=== PATIENT | female | born 1985 | race Caucasian/White ===

== ENCOUNTER 2018-07-17 21:01 | Emergency (ER) | payer MEDICAID ==
[~2018-07-17] VITALS: Ht 160 cm; Wt 86.2 kg
[2018-07-17 21:25] VITALS: BP 107/65
[2018-07-17] MEDS ORDERED: Lidocaine 1% Plain 30 ml INJ ONE (21:30)
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
[2018-07-17] MEDS ORDERED: IBUPROFEN600 MG ORAL (21:56)
[2018-07-17] MEDS ORDERED: CEPHALEXIN500 MG ORAL (21:56)
[2018-07-17 22:03] VITALS: BP 110/68
== END 2018-07-17 22:02 | disposition home or self-care (01) ==
LOC: EMR 21:49
DX: S61.216A Laceration without foreign body of right little finger without damage to nail, initial encounter (principal); V11.4XXA Pedal cycle driver injured in collision with other pedal cycle in traffic accident, initial encounter; Y93.55 Activity, bike riding; Y92.89 Other specified places as the place of occurrence of the external cause
CPT/HCPCS: 12001; 99283; J2001; Z7502

== ENCOUNTER 2019-08-01 15:33 | Emergency (ER) | payer MEDICAID ==
[~2019-08-01] VITALS: Ht 160 cm; Wt 68.5 kg
[~2019-08-01 15:33] MED LIST: CEPHALEXIN500 MG ORAL; IBUPROFEN600 MG ORAL
[2019-08-01] MEDS ORDERED: Tetanus/Diptheria/Pertussis IM ONE (15:45)
--- NOTE | 2019-08-01 15:48 | NUR ---
ED Nurse Note: Pt walked in ED d/t laceration on foreahead from concrete post 2 hours ago. Denies SOB, VSS.
[2019-08-01 15:57] VITALS: BP 117/90
--- NOTE | 2019-08-01 16:13 | NUR ---
ED Nurse Note: ERMD at bedside
--- NOTE | 2019-08-01 17:06 | Emergency Room Report ---
History of Present Illness General Chief Complaint: Head Injury Source: Patient Present Illness HPI 34 YO female presents to the ED c/o 02/27 in severity tenderness, open wound and bleeding to the right side of the forehead x 2 hours. Pt. s/p mechanical fall and hit her head on a cement pillar. She denies fall greater than 8ft. Denies neck or back pain, Denies LOC, paresthesias, urinary incontinence or retention. Denies N/V. She reports having some dizziness when she gets up too quickly. Denies vertigo. Pt. reports she is ambulating fine without assistance. PT. states she is not UTD with tetanus vaccinations . Pt. denies weakness or loss of gross motor movements. She denies bleeding at this time. She denies difficulty with memory, speech or construction of sentences. She denies taking blood thinning medications. She denies suspicion for fractures she reports pain is primarily on the skin/cut. Allergies: Coded Allergies: No Known Allergies (Unverified , 07/17/18) Patient History Past Medical History: see triage record Past Surgical History: none Pertinent Family History: none Now: No Reviewed Nursing Documentation: PMH: Agreed; PSxH: Agreed Nursing Documentation-PMH Hx Gastrointestinal Problems: Yes - gall bladder removed Review of Systems All Other Systems: negative except mentioned in HPI Physical Exam Vital Signs Date Time Temp Pulse Resp B/P (MAP) Pulse Ox O2 Delivery O2 Flow Rate FiO2 08/01/19 15:38 97.5 98 16 117/90 (99) 99 Room Air Sp02 EP Interpretation: reviewed, normal General Appearance: no apparent distress, alert, GCS 15, non-toxic Head: normocephalic, other - 2.5 cm laceration through all layers of the dermis on the right side of the forehead. No bleeding at this time. wound is not grossly contaminated. Eyes: bilateral eye normal inspection, bilateral eye PERRL, bilateral eye EOMI ENT: hearing grossly normal, normal voice Neck: full range of motion, no bony tend Respiratory: lungs clear, normal breath sounds, speaking full sentences Cardiovascular #1: regular rate, rhythm Musculoskeletal: back normal, gait/station normal, normal range of motion, non- tender Neurologic: alert, oriented x3, responsive, motor strength/tone normal, sensory intact, normal gait, speech normal, other - Pt. is answering questions appropriately providing sufficient amount of details without increased response time or difficulty with word recall or sentence construction., grossly normal Psychiatric: judgement/insight normal Skin: laceration - 2.5 cm laceration through all layers of the dermis on the right side of the forehead. No bleeding at this time. wound is not grossly contaminated. Procedures Laceration/Wound Repair Laceration/Wound Repair : Consent: Verbal Wound Location: face Wound's Depth, Shape: linear Wound Length (cm): 2 Wound Explored: clean Irrigated w/ Saline (ccs): 10 Wound Repaired With: Steri-strips - 2, Dermabond Patient Tolerated: Well Complications: None Progress Patient refused standard of care treatment of sutures. This was discussed with attending physician at bedside and the patient will be signing AMA with a refusal of care. Discussed with patient that she is at risk of poor cosmetic appearance, poor wound healing and possibly infection as well. Pt. requested derma-sarmiento. Medical Decision Making PA Attestation Dr. Fish is my supervising Physician whom patient management has been discussed with. Diagnostic Impression: Primary Impression: Forehead laceration Qualified Codes: S01.81XA - Laceration without foreign body of other part of head, initial encounter Additional Impressions: Head injury, acute, without loss of consciousness Qualified Codes: S09.90XA - Unspecified injury of head, initial encounter Refusal of treatment by patient ER Course 34 YO female presents to the ED c/o 02/27 in severity tenderness, open wound and bleeding to the right side of the forehead x 2 hours. Pt. s/p mechanical fall and hit her head on a cement pillar. She denies fall greater than 8ft. Denies neck or back pain, Denies LOC, paresthesias, urinary incontinence or retention. Denies N/V. She reports having some dizziness when she gets up too quickly. Denies vertigo. Pt. reports she is ambulating fine without assistance. PT. states she is not UTD with tetanus vaccinations . Pt. denies weakness or loss of gross motor movements. She denies bleeding at this time. She denies difficulty with memory, speech or construction of sentences. She denies taking blood thinning medications. She denies suspicion for fractures she reports pain is primarily on the skin/cut. Ddx considered but are not limited to Fracture, dislocation, contusion, concussion Sprain/Strain/Spasm, subdural hematoma, spinal cord injury just to name a few Vital signs: are WNL, pt. is afebrile H&PE are most consistent with contusion, no evidence of focal neurological deficit, no loss of consciousness. Low suspicion of depressed skull fracture. Pt. does not have significant tenderness to the Forehead other than soft tissues involved at the site of the laceration. ORDERS: -None required at this time. PE and HPI do not indicate CT at this time. ED INTERVENTIONS: - Tdap vaccination is administered -Pt. declined Tylenol - Pt. refused sutures. -D/w pt reasoning for not doing Head CT this was a collaborative decision weighing the risk/radiation exposure vs. benefits, also discussed red flag symptoms to keep an eye out for that would indicate prompt return to the ED. - Parents verbalize their understanding and agreement with proposed treatment plan. DISCHARGE: At this time pt. is stable for d/c to home. Will provide printed patient care instructions, and any necessary prescriptions. Care plan and follow up instructions have been discussed with the patient prior to discharge. REFUSAL OF PROPER TREATMENT: by informed Pt. - At this time the patient will be treated and d/c'd AGAINST MEDICAL ADVICE. I believe that this patient has the capacity to make decisions on her own. I discussed with the patient the risks of not closing her laceration with sutures and thus leaving AMA. Some of these risks include scarring/ poor cosmetic appearance, delayed or poor wound healing, and increased risk of infection. After discussing these risks with the patient with the attending physician at bedside. She continues to express her want to leave AGAINST MEDICAL ADVICE due to refusal of correct medically recommended treatment (sutures). I encouraged the patient to return at any time, and that she will be welcome here in the emergency department to continue medical management. Last Vital Signs Date Time Temp Pulse Resp B/P (MAP) Pulse Ox O2 Delivery O2 Flow Rate FiO2 08/01/19 15:57 97.5 72 16 117/90 99 Room Air Disposition: HOME, SELF-CARE - Pt. signed AMA due to refusal of correct treatment : wound closure with sutures. Condition: Stable Scripts Acetaminophen* (TYLENOL EXTRA STRENGTH*) 500 Mg Tablet 500 MG ORAL Q6HR, #30 TAB 0 Refills Prov: Mariama Lockhart 08/01/19 Cephalexin* (KEFLEX*) 500 Mg Capsule 500 MG ORAL EVERY 12 HOURS, #14 CAP 0 Refills Prov: Mariama Lockhart 08/01/19 Patient Instructions: Facial Laceration, [id number], Head Injury, Adult, Easy -to-Read, Nonsutured Laceration Care Additional Instructions: Take medications as directed. Follow up with a Primary Care Provider in 3-5 days, even if your symptoms have resolved. --Please review list of primary care clinics, if you do not already have a primary care provider Return sooner to ED if new symptoms occur, or current symptoms become worse. Signs of infection include redness, warmth, pus/discharge, and worsening of pain. - Please note that this Emergency Department Report was dictated using [employer] systems engineer technology software, occasionally this can lead to erroneous entry secondary to interpretation by the dictation equipment. Mariama Lockhart Aug 01, 2019 17:06
[2019-08-01] MEDS ORDERED: TYLENOL EXTRA500 MG ORAL (17:07)
[2019-08-01] MEDS ORDERED: CEPHALEXIN500 MG ORAL (17:07)
--- NOTE | 2019-08-01 17:10 | NUR ---
ER DISCHARGE NOTE: Patient is cleared to be discharged per ERMD, pt is aox4, on room air, with stable vital signs. pt was given dc and prescription instructions, pt was able to verbalize understanding, pt id band removed. pt is able to ambulate with steady gait. pt took all belongings.
[2019-08-01 17:11] VITALS: BP 121/89
== END 2019-08-01 17:10 | disposition home or self-care (01) ==
LOC: EMR 17:00
DX: S01.81XA Laceration without foreign body of other part of head, initial encounter (principal); S09.90XA Unspecified injury of head, initial encounter; Z90.49 Acquired absence of other specified parts of digestive tract; W19.XXXA Unspecified fall, initial encounter; Y92.9 Unspecified place or not applicable; Z23 Encounter for immunization
CPT/HCPCS: 12011; 90471; 90715; Z7502; 99283

== ENCOUNTER 2019-08-05 09:12 | Emergency (ER) | payer MEDICAID ==
[~2019-08-05] VITALS: Ht 160 cm; Wt 68.0 kg
[~2019-08-05 09:12] MED LIST changes: +TYLENOL EXTRA500 MG ORAL
[2019-08-05 09:40] VITALS: BP 112/75
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
[2019-08-05] MEDS ORDERED: Lidocaine 1% MPF 10mg/ml 5ml INJ ONE (10:00)
--- NOTE | 2019-08-05 10:58 | Diagnostic Imaging Report ---
EXAM: CT Head Without Intravenous Contrast CLINICAL HISTORY: TRAUMA TECHNIQUE: Axial computed tomography images of the head brain without intravenous contrast. CTDI is 62.7 mGy and DLP is 1300.9 mGy-cm. One or more of the following dose reduction techniques were used: automated exposure control, adjustment of the mA and or kV according to patient size, use of iterative reconstruction technique. COMPARISON: None FINDINGS: Brain: No acute infarct or hemorrhage. No extra-axial fluid collection. No mass effect or midline shift. Possible small perivascular space in the left posterior centrum semi-ovale. Ventricles and sulci: Normal. No ventriculomegaly or intraventricular hemorrhage. Bones: Normal. No bony lesion or fracture. Subcutaneous tissues: Frontal scalp and facial soft tissue swelling. Probable right eyebrow piercing. Sinuses: Normal. No air-fluid levels or mucosal thickening. Mastoid air cells: Normal. Orbits: Grossly unremarkable. IMPRESSION: 1. No acute intracranial abnormality. 2. Frontal scalp and facial soft tissue swelling. No acute fracture.
[2019-08-05] MEDS ORDERED: IBUPROFEN600 MG ORAL (11:04)
[2019-08-05] MEDS ORDERED: CEPHALEXIN500 MG ORAL (11:04)
[2019-08-05] MEDS ORDERED: BACTRIM DS TAB1 EAC1 ORAL (11:04)
[2019-08-05 11:24] VITALS: BP 111/74
== END 2019-08-05 11:24 | disposition home or self-care (01) ==
LOC: EMR 09:57
DX: S09.90XA Unspecified injury of head, initial encounter (principal); Z90.49 Acquired absence of other specified parts of digestive tract
CPT/HCPCS: 70450; 96372; J0696; Z7502; 99284